=== PATIENT | male | born 1970 | race Caucasian/White ===

== ENCOUNTER 2023-07-31 07:00 | Inpatient (IN) | payer MEDICARE, OTHER ==
[2023-07-31] MEDS ORDERED: IPRATROPIUM-ALBUTEROL 3 ML NEB INHALATION STA (07:31)
[2023-07-31] MEDS ORDERED: methylPREDNISolone SOD SUCCI 125 MG/2 ML VIAL IV STA (07:31)
[2023-07-31] MEDS ORDERED: QUEtiapine 100 MG TAB PO STA (07:32)
--- NOTE | 2023-07-31 07:33 | ED ---
General Adult HPI - General Chief complaint: Shortness of Breath Stated complaint: SOB Time Seen by Provider: 07/31/23 07:15 Source: patient, EMS, RN notes reviewed Mode of arrival: EMS Limitations: no limitations - History of Present Illness Initial comments: Patient is a pleasant 53-year-old male presenting to the emergency department with concerns with difficulty breathing. Onset of symptoms was a week ago. Patient does have cough with white sputum. No fever. No chest pain. Patient does have history of similar symptoms previously associated with COPD and bronchitis. Patient currently comes from [place] for history of methamphetamine use. Patient requests his morning Seroquel. - Related Data Allergies Allergy/AdvReac Type Severity Reaction Status Date / Time No Known Allergies Allergy Verified 07/31/23 07:05 Review of Systems ROS Statement: Those systems with pertinent positive or pertinent negative responses have been documented in the HPI. ROS Other: All systems not noted in ROS Statement are negative. Constitutional: Denies: fever Eyes: Denies: eye pain ENT: Denies: ear pain Respiratory: Reports: as per HPI, cough, dyspnea Cardiovascular: Denies: chest pain Endocrine: Denies: fatigue Gastrointestinal: Denies: abdominal pain Musculoskeletal: Denies: back pain Past Medical History Smoking Status: Current some day smoker Past Alcohol Use History: Occasional Past Drug Use History: Methamphetamine General Exam Limitations: no limitations General appearance: alert, in no apparent distress Head exam: Present: normocephalic Eye exam: Present: normal appearance Neck exam: Present: normal inspection Respiratory exam: Present: wheezes, decreased breath sounds Cardiovascular Exam: Present: regular rate, normal rhythm GI/Abdominal exam: Present: soft. Absent: tenderness Extremities exam: Present: normal inspection. Absent: pedal edema, calf tenderness Neurological exam: Present: alert Psychiatric exam: Present: normal affect, normal mood Skin exam: Present: normal color Course Vital Signs 07/31/23 07/31/23 07/31/23 07:02 07:07 09:20 Temperature 97.4 F L Pulse Rate 78 86 Respiratory 28 H Rate Blood Pressure 118/77 O2 Sat by Pulse 93 L 95 Oximetry 07/31/23 09:27 Temperature Pulse Rate 78 Respiratory Rate Blood Pressure O2 Sat by Pulse Oximetry EKG Findings - EKG Results: EKG: interpreted by ERMD, sinus rhythm, normal axis, normal QRS, normal ST/T Medical Decision Making - Medical Decision Making Was pt. sent in by a medical professional or institution ([employer]ONNIE Black, EMPLOYEE SERVICE OFFICER, urgent care, hospital, or [place] health care facility...) When possible be specific @ -Patient was sent from [place] [facility] [place] Did you speak to anyone other than the patient for history (EMS, parent, family, police, friend...)? What history was obtained from this source @ -No Did you review nursing and triage notes (agree or disagree)? Why? @ -I reviewed and agree with nursing and triage notes Were old charts reviewed (outside hosp., previous admission, EMS record, old EKG, old radiological studies, urgent care reports/EKG's, [place] health care facility records)? Report findings @ -Reviewed limited paperwork from [place] Differential Diagnosis (chest pain, altered mental status, abdominal pain women, abdominal pain men, vaginal bleeding, weakness, fever, dyspnea, syncope, headache, dizziness, GI bleed, back pain, seizure, CVA, palpatations, mental health, musculoskeletal)? @ -Differential Dyspnea: Coronary syndrome, arrhythmia, tamponade, asthma, COPD, pulmonary embolism, pneumonia, pneumothorax, pulmonary effusion, anaphylaxis, diabetic ketoacidosis, flailed chest, pulmonary contusion, diaphragmatic rupture, anemia, neuromuscular, this is not meant to be an all-inclusive list. EKG interpreted by me (3pts min.). @ -As above X-rays interpreted by me (1pt min.). @ -Chest x-ray shows multifocal infiltrates CT interpreted by me (1pt min.). @ -None done U/S interpreted by me (1pt. min.). @ -None done What testing was considered but not performed or refused? (CT, X-rays, U/S, labs)? Why? @ -None What meds were considered but not given or refused? Why? @ -None Did you discuss the management of the patient with other professionals (professionals i.e. BONNIE Black, EMPLOYEE SERVICE OFFICER, lab, RT, psych nurse, social service manager, laboratory cureman, teacher, chief legal officer, family caseworker)? Give summary @ -eMH for admission covering for hospital call Was smoking cessation discussed for >3mins.? @ -No Was critical care preformed (if so, how long)? @ -No Were there social determinants of health that impacted care today? How? (Homelessness, low income, unemployed, alcoholism, drug addiction, transportation, low edu. Level, literacy, decrease access to med. care, skilled nursing, r ehab)? @ -No Was there de-escalation of care discussed even if they declined (Discuss DNR or withdrawal of care, Hospice)? DNR status @ -No What co-morbidities impacted this encounter? (DM, HTN, Smoking, COPD, CAD, Cancer, CVA, ARF, Chemo, Hep., AIDS, mental health diagnosis, sleep apnea, morbid obesity)? @ -None Was patient admitted / discharged? Hospital course, mention meds given and route, prescriptions, significant lab abnormalities, going to OR and other pertinent info. @ -Patient reevaluated without significant change in lung sounds. Chest x-ray with multifocal infiltrates. Viral testing negative. Patient will be admitted on pneumonia pathway. Patient reevaluated and updated on plan. Admission orders written. Pulmonary consult placed. IV antibiotics started. Blood culture and lactic acid have been ordered. Undiagnosed new problem with uncertain prognosis? @ -No Drug Therapy requiring intensive monitoring for toxicity (Heparin, Nitro, Insulin, Cardizem)? @ -No Were any procedures done? @ -No Diagnosis/symptom? @ -COPD, multifocal pneumonia Acute, or Chronic, or Acute on Chronic? @ -Acute on chronic, acute Uncomplicated (without systemic symptoms) or Complicated (systemic symptoms)? @ -default Side effects of treatment? @ -No Exacerbation, Progression, or Severe Exacerbation? @ -Exacerbation of COPD Poses a threat to life or bodily function? How? (Chest pain, [place], [place], pneumonia, PE, COPD, DKA, ARF, appy, cholecystitis, CVA, Diverticulitis, Homicidal, Suicidal, threat to staff... and all critical care pts) @ -No - Lab Data Result diagrams: 07/31/23 07:56 07/31/23 07:56 Lab Results 07/31/23 07/31/23 07/31/23 Range/Units 07:56 07:56 07:56 WBC 7.4 (3.8-10.6) k/uL RBC 5.23 (4.30-5.90) m/uL Hgb 15.0 (13.0-17.5) gm/dL Hct 45.7 (39.0-53.0) % MCV 87.4 (80.0-100.0) fL MCH 28.7 (25.0-35.0) pg MCHC 32.8 (31.0-37.0) g/dL RDW 14.7 (11.5-15.5) % Plt Count 254 (150-450) k/uL MPV 7.2 Neutrophils % 61 % Lymphocytes % 19 % Monocytes % 5 % Eosinophils % 11 % Basophils % 1 % Neutrophils # 4.5 (1.3-7.7) k/uL Lymphocytes # 1.4 (1.0-4.8) k/uL Monocytes # 0.4 (0-1.0) k/uL Eosinophils # 0.8 H (0-0.7) k/uL Basophils # 0.0 (0-0.2) k/uL Sodium 139 (137-145) mmol/L Potassium 4.7 (3.5-5.1) mmol/L Chloride 103 (98-107) mmol/L Carbon Dioxide 25 (22-30) mmol/L Anion Gap 11 mmol/L BUN 20 (9-20) mg/dL Creatinine 0.68 (0.66-1.25) mg/dL Est GFR (CKD-EPI)AfAm >90 (>60 ml/min/1.73 sqM) Est GFR (CKD-EPI)NonAf >90 (>60 ml/min/1.73 sqM) Glucose 106 H (74-99) mg/dL Plasma Lactic Acid [place] (0.7-2.0) mmol/L Calcium 9.6 (8.4-10.2) mg/dL Magnesium 2.1 (1.6-2.3) mg/dL Total Bilirubin 0.5 (0.2-1.3) mg/dL AST 32 (17-59) U/L ALT 17 (4-49) U/L Alkaline Phosphatase 26 L (38-126) U/L Total Protein 9.0 H (6.3-8.2) g/dL Albumin 4.6 (3.5-5.0) g/dL Influenza Type A (PCR) Not Detected (Not Detectd) Influenza Type B (PCR) Not Detected (Not Detectd) RSV (PCR) Not Detected (Not Detectd) SARS-CoV-2 (PCR) Not Detected (Not Detectd) 07/31/23 Range/Units 07:56 WBC (3.8-10.6) k/uL RBC (4.30-5.90) m/uL Hgb (13.0-17.5) gm/dL Hct (39.0-53.0) % MCV (80.0-100.0) fL MCH (25.0-35.0) pg MCHC (31.0-37.0) g/dL RDW (11.5-15.5) % Plt Count (150-450) k/uL MPV Neutrophils % % Lymphocytes % % Monocytes % % Eosinophils % % Basophils % % Neutrophils # (1.3-7.7) k/uL Lymphocytes # (1.0-4.8) k/uL Monocytes # (0-1.0) k/uL Eosinophils # (0-0.7) k/uL Basophils # (0-0.2) k/uL Sodium (137-145) mmol/L Potassium (3.5-5.1) mmol/L Chloride (98-107) mmol/L Carbon Dioxide (22-30) mmol/L Anion Gap mmol/L BUN (9-20) mg/dL Creatinine (0.66-1.25) mg/dL Est GFR (CKD-EPI)AfAm (>60 ml/min/1.73 sqM) Est GFR (CKD-EPI)NonAf (>60 ml/min/1.73 sqM) Glucose (74-99) mg/dL Plasma Lactic Acid [place] 1.2 (0.7-2.0) mmol/L Calcium (8.4-10.2) mg/dL Magnesium (1.6-2.3) mg/dL Total Bilirubin (0.2-1.3) mg/dL AST (17-59) U/L ALT (4-49) U/L Alkaline Phosphatase (38-126) U/L Total Protein (6.3-8.2) g/dL Albumin (3.5-5.0) g/dL Influenza Type A (PCR) (Not Detectd) Influenza Type B (PCR) (Not Detectd) RSV (PCR) (Not Detectd) SARS-CoV-2 (PCR) (Not Detectd) Disposition Clinical Impression: Acute exacerbation of chronic obstructive pulmonary disease, Multifocal pneumonia Disposition: ADMITTED IP TO THIS HOSP Condition: Serious Is patient prescribed a controlled substance at d/c from ED?: No Referrals: None,Stated [Primary Care Provider] - 1-2 days Time of Disposition: 09:46
[2023-07-31 08:46] LABS: Basophils % (A) 1 %; Eosinophils # (A) 0.8 k/uL (0-0.7); Eosinophils % (A) 11 %; HCT 45.7 % (39.0-53.0); Lymphocytes # (A) 1.4 k/uL (1.0-4.8); Lymphocytes % (A) 19 %; MCH 28.7 pg (25.0-35.0); MCHC 32.8 g/dL (31.0-37.0); MCV 87.4 fL (80.0-100.0); Mean Platelet Volume 7.2; Monocytes # (A) 0.4 k/uL (0-1.0); Monocytes % (A) 5 %; Neutrophils # (A) 4.5 k/uL (1.3-7.7); Neutrophils % (A) 61 %; Platelet Count 254 k/uL (150-450); RBC 5.23 m/uL (4.30-5.90); RDW 14.7 % (11.5-15.5); WBC 7.4 k/uL (3.8-10.6)
[2023-07-31 09:04] LABS: ALT 17 U/L (4-49); AST 32 U/L (17-59); African American GFR (CKD) >90 (>60 ml/min/1.73 sqM); Albumin 4.6 g/dL (3.5-5.0); Alkaline Phosphatase 26 U/L (38-126); Anion Gap 11 mmol/L; Blood Urea Nitrogen 20 mg/dL (9-20); Calcium 9.6 mg/dL (8.4-10.2); Carbon Dioxide 25 mmol/L (22-30); Chloride 103 mmol/L (98-107); Glucose 106 mg/dL (74-99); Magnesium 2.1 mg/dL (1.6-2.3); Non-African American GFR(CKD) >90 (>60 ml/min/1.73 sqM); Potassium 4.7 mmol/L (3.5-5.1); Sodium 139 mmol/L (137-145); Total Bilirubin 0.5 mg/dL (0.2-1.3)
--- NOTE | 2023-07-31 09:27 | XR ---
EXAMINATION TYPE: XR chest 2V DATE OF EXAM: 07/31/2023 8:50 AM CLINICAL INDICATION:Male, 53 years old with history of difficulty breathing; [facility] COMPARISON: None TECHNIQUE: XR chest 2V Frontal and lateral views of the chest. FINDINGS: Lungs/Pleura: Multifocal airspace opacities. No evidence of pneumothorax or pleural effusion. Pulmonary vascularity: Unremarkable. Heart/mediastinum: Cardiomediastinal silhouette is unremarkable. Musculoskeletal: No acute osseous pathology. IMPRESSION: Multifocal airspace opacities correlate for pneumonia.
[2023-07-31] MEDS ORDERED: PNEUMONIA PROTOCOL UTILIZED 1 EACH MISC PO PRN (09:42)
[2023-07-31] MEDS ORDERED: IPRATROPIUM-ALBUTEROL 3 ML NEB INHALATION PRN (09:42)
[2023-07-31] MEDS ORDERED: AZITHROMYCIN 500 MG in SODIUM CHLORIDE 0.9% 250 ML IVPB STA (09:42)
[2023-07-31] MEDS: SODIUM CHLORIDE 0.9% 1,000 ML IV SCH ×2 (10:20→17:12)
[2023-07-31 11:13] LABS: INR 1.1 (<1.2); Partial Thromboplastin Time 22.6 sec (22.0-30.0); Prothrombin Time 11.6 sec (10.0-12.5)
[2023-07-31] MEDS: IPRATROPIUM-ALBUTEROL 3 ML NEB INHALATION SCH ×3 (12:02→20:56)
[2023-07-31] MEDS ORDERED: NALOXONE 0.4 MG/ML 1 ML VIAL IV PRN (13:35)
[2023-07-31] MEDS ORDERED: ACETAMINOPHEN TAB 325 MG TAB PO PRN (13:35)
[2023-07-31] MEDS ORDERED: MAG HYDROX/AL HYDROX/SIMETH 30 ML CUP PO PRN (13:35)
[2023-07-31] MEDS ORDERED: ONDANSETRON 4 MG/2 ML VIAL IVP PRN (13:35)
[2023-07-31] MEDS ORDERED: ALPRAZolam 0.25 MG TAB PO PRN (13:35)
[2023-07-31] MEDS ORDERED: bisacodyL 5 MG TABLET.DR PO PRN (13:35)
--- NOTE | 2023-07-31 13:37 | P.HPIM ---
History of Present Illness H&P Date: 07/31/23 History of present illness; patient is a 53-year-old gentleman with past medical history significant for COPD, and tobacco addiction who presented to the ER because of worsening shortness of breath and productive cough for 1 week. Patient was sent in from [place] where He was being treated for methamphetamine abuse. Patient stated that shortness of breath on exertion. Patient was also coughing up white phlegm. Denied any fever or chills. There was no complain of orthopnea or PND. No complaint of chest pain. Denies any nausea, vomiting abdominal pain. Patient was complaining of lethargy and weakness. Because of the symptoms, patient came to the ER Initial lab work done in the ER showed WBC 7.4, hemoglobin 15, platelet count 254, sodium 139 potassium 4.7, BUN 20, creatinine 0.68, glucose 106, Influenza A not detected Influenza B not detected RSV not detected COVID-19 not detected EKG done in the ER Chest x-ray done in the ER showed multifocal airspace opacities Patient started on IV antibiotics and admitted to medicine service REVIEW OF SYSTEMS: CONSTITUTIONAL: No fever, no malaise, no fatigue. HEENT: No recent visual problems or hearing problems. Denied any sore throat. CARDIOVASCULAR: As mentioned in HPI PULMONARY: As mentioned in HPI GASTROINTESTINAL: No diarrhea, no nausea, no vomiting, no abdominal pain. NEUROLOGICAL: No headaches, no weakness, no numbness. HEMATOLOGICAL: Denies any bleeding or petechiae. GENITOURINARY: Denies any burning micturition, frequency, or urgency. MUSCULOSKELETAL/RHEUMATOLOGICAL: Denies any joint pain, swelling, or any muscle pain. ENDOCRINE: Denies any polyuria or polydipsia. The rest of the 14-point review of systems is negative. PHYSICAL EXAMINATION: GENERAL: The patient is alert and oriented x3, not in any acute distress. Well developed, well nourished. HEENT: Pupils are round and equally reacting to light. EOMI. No scleral icterus. No conjunctival pallor. Normocephalic, atraumatic. No pharyngeal erythema. No thyromegaly. CARDIOVASCULAR: S1 and S2 present. No murmurs, rubs, or gallops. PULMONARY: Coarse breath some bilaterally, expiratory wheeze audible ABDOMEN: Soft, nontender, nondistended, normoactive bowel sounds. No palpable organomegaly. MUSCULOSKELETAL: No joint swelling or deformity. EXTREMITIES: No cyanosis, clubbing, or pedal edema. NEUROLOGICAL: Gross neurological examination did not reveal any focal deficits. SKIN: No rashes. Assessment and plan Bacterial pneumonia Acute COPD exacerbation Tobacco addiction History of Methamphetamine abuse Monitor vital signs Monitor CBC Monitor CMP Continue telemetry monitoring Ordered blood cultures Ordered sputum culture Continue IV Rocephin and azithromycin continue breathing treatments Consult pulmonary Consult ID Labs and medication were reviewed.. Continue same treatment. Continue with symptomatic treatment. Resume home medication. Monitor labs and vitals. DVT and GI prophylaxis. Further recommendations as per clinical course of the patient Dictation was produced using [employer] dictation software. please excuse any grammatical, word or spelling errors. Past Medical History Smoking Status: Current some day smoker Past Alcohol Use History: Occasional Past Drug Use History: Methamphetamine Medications and Allergies Home Medications Medication Instructions Recorded Confirmed Type Acetaminophen Tab [Tylenol] 650 mg PO Q4H PRN 07/31/23 07/31/23 History Albuterol Nebulized [Ventolin 2.5 mg INHALATION RT-Q4H PRN 07/31/23 07/31/23 History Nebulized] Atorvastatin [Lipitor] 40 mg PO HS 07/31/23 07/31/23 History Azithromycin [Zithromax Z Pack] See Taper PO DIRECTED 07/31/23 07/31/23 History Buprenorphine-Nalox 8-2 mg Tab 1 tab SUBLINGUAL BID 07/31/23 07/31/23 History [Suboxone 8-2 mg Tab] Calcium/Mag/Zinc/D3 1 tab PO TID PRN 07/31/23 07/31/23 History Chlorpheniramine Maleate 4 mg PO Q4H PRN 07/31/23 07/31/23 History [Chlor-Trimeton] Loperamide HCl [Imodium A-D] 4 mg PO QID PRN MDD 8 TABLETS 07/31/23 07/31/23 History Multivitamins, Thera [Multivitamin 1 tab PO DAILY 07/31/23 07/31/23 History (formulary)] Mylanta 30 ml PO Q4H PRN 07/31/23 07/31/23 History QUEtiapine FUMARATE [Seroquel] 200 mg PO HS 07/31/23 07/31/23 History QUEtiapine [SEROquel] 100 mg PO DAILY 07/31/23 07/31/23 History Tamsulosin HCl [Flomax] 0.4 mg PO DAILY 07/31/23 07/31/23 History Thiamine [Vitamin B-1] 100 mg PO DAILY 07/31/23 07/31/23 History busPIRone HCl [Buspar] 10 mg PO TID 07/31/23 07/31/23 History guaiFENesin [guaiFENesin Oral 200 mg PO Q4H PRN 07/31/23 07/31/23 History Solution] ondansetron HCL [Zofran] 8 mg PO Q6H PRN 07/31/23 07/31/23 History traZODone HCL 100 mg PO HS 07/31/23 07/31/23 History Allergies Allergy/AdvReac Type Severity Reaction Status Date / Time No Known Allergies Allergy Verified 07/31/23 10:33 Physical Exam Vitals: Vital Signs Temp Pulse Resp BP Pulse Ox 07/31/23 12:13 80 07/31/23 12:04 82 07/31/23 09:27 78 07/31/23 09:20 86 07/31/23 07:07 95 07/31/23 07:02 97.4 F L 78 28 H 118/77 93 L Intake and Output 07/30/23 07/31/23 07/31/23 22:59 06:59 14:59 Other: Weight 77.111 kg Results CBC & Chem 7: 07/31/23 07:56 07/31/23 07:56 Labs: Abnormal Lab Results - Last 24 Hours (Table) 07/31/23 07/31/23 Range/Units 07:56 07:56 Eosinophils # 0.8 H (0-0.7) k/uL Glucose 106 H (74-99) mg/dL Alkaline Phosphatase 26 L (38-126) U/L Total Protein 9.0 H (6.3-8.2) g/dL
[2023-07-31] MEDS: methylPREDNISolone SOD SUCCI 125 MG/2 ML VIAL IV SCH ×3 (13:56→23:52)
--- NOTE | 2023-07-31 15:48 | P.CNPUL ---
History of Present Illness Consult date: 07/31/23 Requesting physician: Hollis Borrego Reason for consult: dyspnea, COPD, abnormal CXR/CT Chief complaint: Shortness of breath, cough, congestion History of present illness: This is a 53-year-old male patient with a known history of chronic and ongoing tobacco dependence, chronic obstructive pulmonary disease, lumbar disc disease, CVA following a methamphetamine overdose. He lives in [place] but was at [facility] for drug use. He was sent here today for increasing shortness of breath, cough and congestion for the past 5-6 days. His chest x-ray does show bilateral infiltrates. Viral screen was negative. He is seen today in consultation in the emergency department. He is awake and alert in no acute distress. He is maintaining O2 saturation in low 90s on room air. White count 7.4. Hemoglobin 15.0. Sodium 139. Potassium 4.7. Bicarb 25. BUN 20. Creatinine 0.68. Glucose 106. He's been initiated on DuoNeb inhalations, Pulmicort and Perforomist inhalations, IV Solu-Medrol. Antibiotics in the form of ceftriaxone and azithromycin. NicoDerm patch in place. Normal saline at 100 ML's per hour. Review of Systems REVIEW OF SYSTEMS: CONSTITUTIONAL: Denies any recent significant weight loss or weight gain. EYES: Denies change in vision. EARS, NOSE, MOUTH, THROAT: Denies headaches, denies sore throat. CARDIOVASCULAR: Denies chest pain, palpitations or syncopal episodes. RESPIRATORY: Positive for shortness of breath, cough, congestion no hemoptysis. GASTROINTESTINAL: Denies change in appetite, denies abdominal pain GENITOURINARY: Denies hematuria, denies infections. MUSKULOSKELETAL: Denies pain, denies swelling. INTEGUMENTARY: Denies rash, denies eczema. NEUROLOGICAL: Denies recent memory loss, no recent seizure activity. PSYCHIATRIC: Denies anxiety, denies depression. HEMATOLOGIC/LYMPHATIC: Denies anemia, denies enlarged lymph nodes. Past Medical History Smoking Status: Current some day smoker Past Alcohol Use History: Occasional Past Drug Use History: Methamphetamine Medications and Allergies Home Medications Medication Instructions Recorded Confirmed Type Acetaminophen Tab [Tylenol] 650 mg PO Q4H PRN 07/31/23 07/31/23 History Albuterol Nebulized [Ventolin 2.5 mg INHALATION RT-Q4H PRN 07/31/23 07/31/23 History Nebulized] Atorvastatin [Lipitor] 40 mg PO HS 07/31/23 07/31/23 History Azithromycin [Zithromax Z Pack] See Taper PO DIRECTED 07/31/23 07/31/23 History Buprenorphine-Nalox 8-2 mg Tab 1 tab SUBLINGUAL BID 07/31/23 07/31/23 History [Suboxone 8-2 mg Tab] Calcium/Mag/Zinc/D3 1 tab PO TID PRN 07/31/23 07/31/23 History Chlorpheniramine Maleate 4 mg PO Q4H PRN 07/31/23 07/31/23 History [Chlor-Trimeton] Loperamide HCl [Imodium A-D] 4 mg PO QID PRN MDD 8 TABLETS 07/31/23 07/31/23 History Multivitamins, Thera [Multivitamin 1 tab PO DAILY 07/31/23 07/31/23 History (formulary)] Mylanta 30 ml PO Q4H PRN 07/31/23 07/31/23 History QUEtiapine FUMARATE [Seroquel] 200 mg PO HS 07/31/23 07/31/23 History QUEtiapine [SEROquel] 100 mg PO DAILY 07/31/23 07/31/23 History Tamsulosin HCl [Flomax] 0.4 mg PO DAILY 07/31/23 07/31/23 History Thiamine [Vitamin B-1] 100 mg PO DAILY 07/31/23 07/31/23 History busPIRone HCl [Buspar] 10 mg PO TID 07/31/23 07/31/23 History guaiFENesin [guaiFENesin Oral 200 mg PO Q4H PRN 07/31/23 07/31/23 History Solution] ondansetron HCL [Zofran] 8 mg PO Q6H PRN 07/31/23 07/31/23 History traZODone HCL 100 mg PO HS 07/31/23 07/31/23 History Allergies Allergy/AdvReac Type Severity Reaction Status Date / Time No Known Allergies Allergy Verified 07/31/23 10:33 Physical Exam Vitals: Vital Signs Temp Pulse Resp BP Pulse Ox 07/31/23 14:03 74 20 112/88 93 L 07/31/23 12:13 80 07/31/23 12:04 82 07/31/23 09:27 78 07/31/23 09:20 86 07/31/23 07:07 95 07/31/23 07:02 97.4 F L 78 28 H 118/77 93 L Intake and Output 07/31/23 07/31/23 07/31/23 06:59 14:59 22:59 Other: Weight 77.111 kg GENERAL EXAM: Alert, 53-year-old male patient, on room air, fairly comfortable in no apparent distress. HEAD: Normocephalic. EYES: Normal reaction of pupils, equal size. NOSE: Clear with pink turbinates. THROAT: Edentulous. No erythema or exudates. NECK: No masses, no JVD. CHEST: No chest wall deformity. LUNGS: Equal air entry with bilateral scattered rhonchi, wheeze, diminished. CVS: S1 and S2 normal with no audible murmur, regular rhythm. ABDOMEN: No hepatosplenomegaly, normal bowel sounds, no guarding or rigidity. SPINE: No scoliosis or deformity SKIN: No rashes CENTRAL NERVOUS SYSTEM: No focal deficits, tone is normal in all 4 extremities. EXTREMITIES: There is no peripheral edema. No clubbing, no cyanosis. Peripheral pulses are intact. Results - Laboratory Findings CBC and BMP: 07/31/23 07:56 07/31/23 07:56 PT/INR, D-dimer PT 11.6 sec (10.0-12.5) 07/31/23 10:30 INR 1.1 (<1.2) 07/31/23 10:30 Abnormal lab findings: Abnormal Labs 07/31/23 07/31/23 07:56 07:56 Eosinophils # 0.8 H Glucose 106 H Alkaline Phosphatase 26 L Total Protein 9.0 H - Diagnostic Findings Chest x-ray: image reviewed Assessment and Plan Assessment: Acute hypoxemic respiratory failure secondary to an acute exacerbation of chronic obstructive pulmonary disease, complicated by bilateral pneumonia, community-acquired Methamphetamine abuse and currently residing in [facility] 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 Continue ceftriaxone and azithromycin Check a pro-calcitonin Add Pulmicort and Perforomist inhalations Continue DuoNeb inhalations, Solu-Medrol Educated regarding the importance of complete drug cessation Educated regarding the importance of complete smoking cessation NicoDerm patch is applied We will continue to follow and make further recommendations based on his clinical status I have personally seen and examined the patient, performed the documentation and the assessment and plan as written. Number of minutes spent on the visit: 20.
[2023-07-31] MEDS: NICOTINE 21MG/24HR PATCH TRANSDERM SCH (16:14)
[2023-07-31] MEDS ORDERED: guaiFENesin SYRUP 100MG/5ML 200 MG/10 ML CUP PO PRN (17:38)
[2023-07-31] MEDS: LORazepam 2 MG/ML INJ IV PRN (17:55)
[2023-07-31] MEDS: QUEtiapine 200 MG TAB PO SCH (20:08)
[2023-07-31] MEDS: ATORVASTATIN 40 MG TAB PO SCH (20:08)
[2023-07-31] MEDS: BUPRENORPHINE-NALOX 8-2 MG TAB 1 EACH TAB.SUBL SL SCH (20:08)
[2023-07-31] MEDS: busPIRone HCl 10 MG TAB PO SCH (20:09)
[2023-07-31] MEDS: traZODone HCL 100 MG TAB PO SCH (20:09)
[2023-07-31] MEDS: FORMOTEROL FUMARATE 20 MCG/2 ML NEBU INHALATION SCH (20:56)
[2023-07-31] MEDS: BUDESONIDE 1 MG/2 ML NEBU INHALATION SCH (20:56)
[2023-08-01] MEDS: LORazepam 2 MG/ML INJ IV PRN ×4 (00:01→14:52)
[2023-08-01] MEDS: SODIUM CHLORIDE 0.9% 1,000 ML IV SCH ×2 (05:59→08:01)
[2023-08-01] MEDS: methylPREDNISolone SOD SUCCI 125 MG/2 ML VIAL IV SCH ×4 (06:00→17:34)
[2023-08-01] MEDS: IPRATROPIUM-ALBUTEROL 3 ML NEB INHALATION SCH ×4 (07:38→21:16)
[2023-08-01] MEDS: FORMOTEROL FUMARATE 20 MCG/2 ML NEBU INHALATION SCH ×2 (07:38→21:16)
[2023-08-01] MEDS: BUDESONIDE 1 MG/2 ML NEBU INHALATION SCH ×2 (07:38→21:16)
[2023-08-01] MEDS: AZITHROMYCIN 500 MG TAB PO SCH (07:59)
[2023-08-01] MEDS: busPIRone HCl 10 MG TAB PO SCH ×3 (07:59→20:34)
[2023-08-01] MEDS: TAMSULOSIN 0.4 MG CAP.ER.24H PO SCH (07:59)
[2023-08-01] MEDS: NICOTINE 21MG/24HR PATCH TRANSDERM SCH (07:59)
[2023-08-01] MEDS: BUPRENORPHINE-NALOX 8-2 MG TAB 1 EACH TAB.SUBL SL SCH ×2 (08:00→20:34)
[2023-08-01] MEDS: QUEtiapine 100 MG TAB PO SCH (08:00)
--- NOTE | 2023-08-01 08:21 | P.CONS ---
History of Present Illness - Reason for Consult Consult date: 07/31/23 multifocal pneumonia Requesting physician: Hollis Borrego - Chief Complaint increase in shortness of breath and cough x few days - History of Present Illness Patient is a 53-year-old male with a past medical his significant for COPD current smoker chronic back pain presenting to the ER for evaluation of increasing shortness of breath patient's symptom has been getting worse for about a week patient also complaining of cough which is moderate intensity with whitish sputum patient denies having any pleuritic chest pain or hemoptysis denies having any nausea no vomiting no choking on the food no abdominal pain or any diarrhea patient presented to the hospital was afebrile patient was not tachycardic or hypotensive did have mild hypoxia but no need for supplemental oxygen did have white count of 7.4 creatinine 0.68 liver enzymes are normal influenza RSV and COVID testing was negative patient did have a chest x-ray multifocal airspace opacity correlate for pneumonia patient was admitted to the hospital started on Rocephin and Zithromax infectious disease was consulted for further management of antibiotic therapy Review of Systems Positive point and negatives has been mentioned in the HPI, complete review of systems was performed and all other systems are negative Past Medical History Past Medical History: COPD Additional Past Medical History / Comment(s): chronic back pain History of Any Multi-Drug Resistant Organisms: None Reported Additional Past Surgical History / Comment(s): right shoulder repair Past Anesthesia/Blood Transfusion Reactions: No Reported Reaction Past Psychological History: No Psychological Hx Reported Smoking Status: Current some day smoker Past Alcohol Use History: Occasional Past Drug Use History: Methamphetamine - Past Family History Father Family Medical History: No Reported History Medications and Allergies Home Medications Medication Instructions Recorded Confirmed Type Acetaminophen Tab [Tylenol] 650 mg PO Q4H PRN 07/31/23 07/31/23 History Atorvastatin [Lipitor] 40 mg PO HS 07/31/23 07/31/23 History Buprenorphine-Nalox 8-2 mg Tab 1 tab SUBLINGUAL BID 07/31/23 07/31/23 History [Suboxone 8-2 mg Tab] Calcium/Mag/Zinc/D3 1 tab PO TID PRN 07/31/23 07/31/23 History Loperamide HCl [Imodium A-D] 4 mg PO QID PRN MDD 8 TABLETS 07/31/23 07/31/23 History Multivitamins, Thera [Multivitamin 1 tab PO DAILY 07/31/23 07/31/23 History (formulary)] Mylanta 30 ml PO Q4H PRN 07/31/23 07/31/23 History QUEtiapine FUMARATE [SEROquel] 200 mg PO HS 07/31/23 07/31/23 History QUEtiapine [SEROquel] 100 mg PO DAILY 07/31/23 07/31/23 History Tamsulosin HCl [Flomax] 0.4 mg PO DAILY 07/31/23 07/31/23 History Thiamine [Vitamin B-1] 100 mg PO DAILY 07/31/23 07/31/23 History busPIRone HCl [Buspar] 10 mg PO TID 07/31/23 07/31/23 History guaiFENesin [guaiFENesin Oral 200 mg PO Q4H PRN 07/31/23 07/31/23 History Solution] ondansetron HCL [Zofran] 8 mg PO Q6H PRN 07/31/23 07/31/23 History traZODone HCL 100 mg PO HS 07/31/23 07/31/23 History Albuterol Inhaler [Ventolin Hfa 1 puff INHALATION QID PRN #8 gm 08/03/23 Rx Inhaler] Budesonide/Formoterol Fumarate 1 puff INHALATION BID #10.2 gm 08/03/23 Rx [Symbicort 80-4.5 Mcg Inhaler] Nicotine 21Mg/24Hr Patch [Habitrol] 1 patch TRANSDERM DAILY patch 08/03/23 Rx Pantoprazole [Protonix] 40 mg PO AC-BRKFST #30 tab 08/03/23 Rx chlordiazePOXIDE HCl [Librium] 20 mg PO DIRECTED #6 cap 08/03/23 Rx predniSONE 0 mg PO DIRECTED 12 Days #34 tab 08/03/23 Rx Allergies Allergy/AdvReac Type Severity Reaction Status Date / Time No Known Allergies Allergy Verified 07/31/23 10:33 Physical Exam Vitals: Vital Signs Temp Pulse Pulse Resp BP BP Pulse Ox 07/31/23 16:46 97.4 F L 92 19 123/69 94 L 07/31/23 15:53 76 07/31/23 15:44 72 07/31/23 14:03 74 20 112/88 93 L 07/31/23 12:13 80 07/31/23 12:04 82 07/31/23 09:27 78 07/31/23 09:20 86 07/31/23 07:07 95 07/31/23 07:02 97.4 F L 78 28 H 118/77 93 L Intake and Output 07/31/23 07/31/23 07/31/23 06:59 14:59 22:59 Other: Weight 77.111 kg 77.111 kg GENERAL DESCRIPTION: Middle-aged male lying in bed, no distress. No tachypnea or accessory muscle of respiration use. HEENT: Shows Pallor , no scleral icterus. Oral mucous membrane is dry. No pharyngeal erythema or thrush NECK: Trachea central, no thyromegaly. LUNGS: Unlabored breathing. Coarse breath sounds bilaterally with occasional wheeze HEART: S1, S2, regular rate and rhythm. No loud murmur ABDOMEN: Soft, no tenderness , guarding or rigidity, no organomegaly EXTREMITIES: No edema of feet. SKIN: No rash, no masses palpable. NEUROLOGICAL: The patient is awake, alert, oriented x3, mood and affect normal. Results CBC & Chem 7: 08/01/23 04:51 08/01/23 04:51 Labs: Abnormal Lab Results - Last 24 Hours (Table) 07/31/23 07/31/23 Range/Units 07:56 07:56 Eosinophils # 0.8 H (0-0.7) k/uL Glucose 106 H (74-99) mg/dL Alkaline Phosphatase 26 L (38-126) U/L Total Protein 9.0 H (6.3-8.2) g/dL Assessment and Plan (1) Multifocal pneumonia Status: Acute Code(s): J18.9 - PNEUMONIA, UNSPECIFIED ORGANISM SNOMED Code(s): 983923217 Plan: 1patient was in the hospital with increasing shortness of breath cough likely representing COPD exacerbation with evidence of multifocal pneumonia on the chest x-ray patient did have a negative COVID test. 2we will obtain sputum for Gram stain and culture check urine for Legionella antigen CRP and a procalcitonin level 3continue with Rocephin and Zithromax while awaiting further work-up to be completed We will follow on clinical condition and cultures to further adjust medication if needed Thank you for this consultation we will follow the patient along with you Dictation was produced using [employer] dictation software. please excuse any grammatical, word or spelling errors. Time with Patient: Greater than 30
[2023-08-01 08:39] LABS: Basophils # (A) 0.03 X 10*3/uL (0.00-0.10); Basophils % (A) 0.3 %; Eosinophils # (A) 0 X 10*3/uL (0.04-0.35); Eosinophils % (A) 0 %; HCT 38.4 % (39.6-50.0); HGB 12.2 g/dL (13.0-17.0); Lymphocytes # (A) 1.21 X 10*3/uL (0.90-5.00); Lymphocytes % (A) 11.1 %; MCH 27.7 pg (27.0-32.0); MCHC 31.8 g/dL (32.0-37.0); MCV 87.1 FL (80.0-97.0); Mean Platelet Volume 9.6 FL (9.5-12.2); Monocytes # (A) 0.11 X 10*3/uL (0.20-1.00); NRBC Per 100 WBC 0 X 10*3/uL (0.00-0.01); Neutrophils # (A) 9.53 X 10*3/uL (1.80-7.70); Neutrophils % (A) 87.1 %; Platelet Count 239 X 10*3/uL (140-440); RBC 4.41 X 10*6/uL (4.40-5.60); RDW 14.4 % (11.5-14.5); WBC 10.93 X 10*3/uL (4.50-10.00)
[2023-08-01 08:40] LABS: ALT 13 U/L (10-49); AST 14 U/L (14-35); Albumin/Globulin Ratio 1.18 Ratio (1.60-3.17); Alkaline Phosphatase 14 U/L (41-126); Blood Urea Nitrogen 18.9 mg/dL (9.0-27.0); Calcium 8.8 mg/dL (8.7-10.3); Carbon Dioxide 22.2 mmol/L (21.6-31.8); Chloride 104 mmol/L (96-109); Globulin 3.4 g/dL (1.6-3.3); Glucose 212 mg/dL (70-110); Potassium 4.1 mmol/L (3.5-5.5); Sodium 138 mmol/L (135-145); Total Bilirubin <0.2 mg/dL (0.3-1.2); Total Protein 7.4 g/dL (6.2-8.2)
[2023-08-01] MEDS: PANTOPRAZOLE 40 MG TABLET PO SCH (10:38)
--- NOTE | 2023-08-01 13:30 | P.PN ---
Subjective Progress Note Date: 08/01/23 This is a 53-year-old male patient with a known history of chronic and ongoing tobacco dependence, chronic obstructive pulmonary disease, lumbar disc disease, CVA following a methamphetamine overdose. He lives in [facility] but was at [facility] for drug use. He was sent here today for increasing shortness of breath, cough and congestion for the past 5-6 days. His chest x-ray does show bilateral infiltrates. Viral screen was negative. He is seen today in consultation in the emergency department. He is awake and alert in no acute distress. He is maintaining O2 saturation in low 90s on room air. White count 7.4. Hemoglobin 15.0. Sodium 139. Potassium 4.7. Bicarb 25. BUN 20. Creatinine 0.68. Glucose 106. He's been initiated on DuoNeb inhalations, Pulmicort and Perforomist inhalations, IV Solu-Medrol. Antibiotics in the form of ceftriaxone and azithromycin. NicoDerm patch in place. Normal saline at 100 ML's per hour. The patient is seen today 08/01/2023 in follow-up on the regular medical floor. He is currently sitting up in a chair at the bedside. Awake and alert in no acute distress. Feeling a bit better today compared to yesterday. Still d yspneic with conversation. Dyspneic with minimal exertion. White count 10.9. Hemoglobin 12.2. Platelets 239. Sodium 138. Potassium 4.1. Bicarb 22. BUN 19. Creatinine 0.9. Glucose 212. AST 14. ALT 13. He is continued on DuoNeb inhalations, Pulmicort and Perforomist inhalations, Solu-Medrol. Antibiotics in the form of ceftriaxone and azithromycin. NicoDerm patch in place. Continued o n Suboxone. Remains on the CIWA protocol. Follow-up chest x-ray continues to show bilateral multifocal airspace opacities. Legionella antigen pending. Pro- calcitonin pending. Objective - Vital Signs Vital signs: Vital Signs Temp 97.7 F 08/01/23 07:08 Pulse 68 08/01/23 11:22 Resp 20 08/01/23 07:08 BP 123/68 08/01/23 07:08 Pulse Ox 96 08/01/23 07:38 FiO2 Intake & Output 07/31/23 08/01/23 08/01/23 18:59 06:59 18:59 Weight 77.111 kg Other: # Voids 1 3 1 - Exam GENERAL EXAM: Alert, 53-year-old male patient, on room air, sitting up in a chair, comfortable in no apparent distress. HEAD: Normocephalic. EYES: Normal reaction of pupils, equal size. NOSE: Clear with pink turbinates. THROAT: Edentulous. No erythema or exudates. NECK: No masses, no JVD. CHEST: No chest wall deformity. LUNGS: Equal air entry with bilateral scattered coarse rhonchi, wheeze, diminished. CVS: S1 and S2 normal with no audible murmur, regular rhythm. ABDOMEN: No hepatosplenomegaly, normal bowel sounds, no guarding or rigidity. SPINE: No scoliosis or deformity SKIN: No rashes CENTRAL NERVOUS SYSTEM: No focal deficits, tone is normal in all 4 extremities. EXTREMITIES: There is no peripheral edema. No clubbing, no cyanosis. Peripheral pulses are intact. - Labs CBC & Chem 7: 08/01/23 04:51 08/01/23 04:51 Labs: Abnormal Lab Results - Last 24 Hours (Table) 08/01/23 08/01/23 Range/Units 04:51 04:51 WBC 10.93 H (4.50-10.00) X 10*3/uL Hgb 12.2 L (13.0-17.0) g/dL Hct 38.4 L (39.6-50.0) % MCHC 31.8 L (32.0-37.0) g/dL Neutrophils # 9.53 H (1.80-7.70) X 10*3/uL Monocytes # 0.11 L (0.20-1.00) X 10*3/uL Eosinophils # 0 L (0.04-0.35) X 10*3/uL BUN/Creatinine Ratio 21.00 H (12.00-20.00) Ratio Glucose 212 H (70-110) mg/dL Total Bilirubin <0.2 L (0.3-1.2) mg/dL Alkaline Phosphatase 14 L (41-126) U/L Globulin 3.4 H (1.6-3.3) g/dL Albumin/Globulin Ratio 1.18 L (1.60-3.17) Ratio Assessment and Plan Assessment: Acute hypoxemic respiratory failure secondary to an acute exacerbation of chronic obstructive pulmonary disease, complicated by bilateral pneumonia, co mmunity-acquired Methamphetamine abuse and currently residing in [facility] 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 Number of minutes spent on the visit: 10.
--- NOTE | 2023-08-01 14:59 | XR ---
EXAMINATION TYPE: XR chest 2V DATE OF EXAM: 08/01/2023 COMPARISON: 07/31/2023 INDICATION: Short of breath TECHNIQUE: Single frontal view of the chest is obtained. FINDINGS: The heart size is normal. The pulmonary vasculature is normal. Increased lung markings are present bilaterally. Findings are similar to comparison. Continued Follow -up is recommended. IMPRESSION: 1. Persistent bilateral lung infiltrates. Correlate for pneumonia. Continued follow-up to clearing is recommended
--- NOTE | 2023-08-01 16:14 | P.PN ---
Subjective Progress Note Date: 08/01/23 Principal diagnosis: Reason for follow-up is multifocal pneumonia Patient is a 53-year-old male with a past medical his significant for COPD current smoker chronic back pain presenting to the ER for evaluation of increasing shortness of breath and cough chest x-ray with multifocal airspace disease, covid 19 is negative concerning for possible pneumonia On today's evaluation that is08/01/2023, the patient denies any fever or any chills, the patient is breathing comfortably on room air without the need for supplemental oxygen, patient denies chest pain, the patient cough has decreased in intensity with occasional sputum production, patient denies Abdominal pain, no nausea/vomiting or diarrhea . Patient white count of 10.93, creatinine 0.9, chest x-ray repeat with persistent bilateral infiltrate Objective - Vital Signs Vital signs: Vital Signs Temp 97.6 F 08/01/23 12:55 Pulse 74 08/01/23 15:23 Resp 20 08/01/23 12:55 BP 110/56 08/01/23 12:55 Pulse Ox 94 L 08/01/23 12:55 FiO2 Intake & Output 07/31/23 08/01/23 08/01/23 18:59 06:59 18:59 Weight 77.111 kg Other: # Voids 1 3 1 - Exam GENERAL DESCRIPTION: Middle-age male up in the chair in no distress RESPIRATORY SYSTEM: Unlabored breathing , coarse breath sounds bilaterally HEART: S1 S2 regular rate and rhythm , ABDOMEN: Soft , no tenderness EXTREMITIES: No edema feet - Labs CBC & Chem 7: 08/01/23 04:51 08/01/23 04:51 Labs: Abnormal Lab Results - Last 24 Hours (Table) 08/01/23 08/01/23 Range/Units 04:51 04:51 WBC 10.93 H (4.50-10.00) X 10*3/uL Hgb 12.2 L (13.0-17.0) g/dL Hct 38.4 L (39.6-50.0) % MCHC 31.8 L (32.0-37.0) g/dL Neutrophils # 9.53 H (1.80-7.70) X 10*3/uL Monocytes # 0.11 L (0.20-1.00) X 10*3/uL Eosinophils # 0 L (0.04-0.35) X 10*3/uL BUN/Creatinine Ratio 21.00 H (12.00-20.00) Ratio Glucose 212 H (70-110) mg/dL Total Bilirubin <0.2 L (0.3-1.2) mg/dL Alkaline Phosphatase 14 L (41-126) U/L Globulin 3.4 H (1.6-3.3) g/dL Albumin/Globulin Ratio 1.18 L (1.60-3.17) Ratio Assessment and Plan (1) Multifocal pneumonia Current Visit: Yes Status: Acute Code(s): J18.9 - PNEUMONIA, UNSPECIFIED ORGANISM SNOMED Code(s): 119886448 Plan: 1patient was in the hospital with increasing shortness of breath cough likely representing COPD exacerbation with evidence of multifocal pneumonia on the chest x-ray patient did have a negative COVID test. 2 sputum for Gram stain and culture has not been collected, urine for Legionella antigen is negative 3patient to continue with Rocephin and Zithromax while awaiting further work-up to be completed Dictation was produced using [employer] dictation software. please excuse any grammatical, word or spelling errors. Time with Patient: Less than 30
[2023-08-01] MEDS: LORazepam 1 MG TAB PO PRN ×2 (18:16→22:31)
[2023-08-01] MEDS: QUEtiapine 200 MG TAB PO SCH (20:34)
[2023-08-01] MEDS: ATORVASTATIN 40 MG TAB PO SCH (20:34)
[2023-08-01] MEDS: traZODone HCL 100 MG TAB PO SCH (20:34)
[2023-08-01] MEDS ORDERED: DEXTROSE 50% SYRINGE 50 ML IVP PRN ×2 (21:11)
--- NOTE | 2023-08-01 21:12 | P.PN ---
Subjective Progress Note Date: 08/01/23 Patient evaluated on the medical floor. Continues to report shortness of breath, on IV ceftriaxone and oral azithromycin. Patient is also on high dose IV solumedrol. Chest xray showing persistent bilateral lung infiltrates. Procalcitonin level 0.02. Legionella, covid, RSV, influenza are negative. He remains on room air. He is anxious requesting increase dose of ativan which he is receiving IV noted that patient is also on xanax TID. Patient unable to give a sputum sample. Review of Systems Constitutional: Denied any fatigue denied any fever. Cardio vascular: denied any chest pain, palpitations Gastrointestinal: denied any nausea, vomiting, diarrhea Pulmonary: Denied any shortness of breath cough Neurologic denied any new focal deficits All inpatient medications were reviewed and appropriate changes in these medications as dictated in the interval history and assessment and plan. PHYSICAL EXAMINATION: GENERAL: The patient is alert and oriented x3, not in any acute distress. Well developed, well nourished. HEENT: Pupils are round and equally reacting to light. EOMI. No scleral icterus. No conjunctival pallor. Normocephalic, atraumatic. No pharyngeal erythema. No thyromegaly. CARDIOVASCULAR: S1 and S2 present. No murmurs, rubs, or gallops. PULMONARY: Lungs are diminished ABDOMEN: Soft, nontender, nondistended, normoactive bowel sounds. No palpable organomegaly. MUSCULOSKELETAL: No joint swelling or deformity. EXTREMITIES: No cyanosis, clubbing, or pedal edema. NEUROLOGICAL: Gross neurological examination did not reveal any focal deficits. SKIN: No rashes. Assessment Bilateral pneumonia, community acquired present on admission likely viral in nature with normal procalcitonin level, Acute COPD exacerbation Steroid induced hyperglycemia Tobacco addiction History of Methamphetamine abuse on suboxone patient is from [facility] History stroke in the past and meth overdose GI prophylaxis DVT prophylaxis Full Code Plan Continue empiric antibiotics, IV steroids Novolog sliding scale added as well as ACHS accuchecks Continue updrafts Educated on tobacco cessation Patient continues with nicotine patch He is requesting increase in ativan; xanax has been discontinued. Ativan dosing adjusted for PRN and patient has been started on oral librium. Blood culture pending, sputum culture pending. Pulmonary and ID following closely. The impression and plan of care has been dictated by Syeda Wren, Nurse Practitioner as directed. Dr. Sagrario MD I have performed a history and physical examination and medical decision making of this patient, discussed the same with the dictator, and agree with the dictators assessment and plan as written, documented as a scribe. Based on total visit time, I have performed more than 50% of this visit. Objective - Vital Signs Vital signs: Vital Signs Temp 97.6 F 08/01/23 12:55 Pulse 74 08/01/23 15:23 Resp 20 08/01/23 12:55 BP 110/56 08/01/23 12:55 Pulse Ox 94 L 08/01/23 12:55 FiO2 Intake & Output 07/31/23 08/01/23 08/01/23 18:59 06:59 18:59 Weight 77.111 kg Other: # Voids 1 3 1 - Labs CBC & Chem 7: 08/01/23 04:51 08/01/23 04:51 Labs: Abnormal Lab Results - Last 24 Hours (Table) 08/01/23 08/01/23 Range/Units 04:51 04:51 WBC 10.93 H (4.50-10.00) X 10*3/uL Hgb 12.2 L (13.0-17.0) g/dL Hct 38.4 L (39.6-50.0) % MCHC 31.8 L (32.0-37.0) g/dL Neutrophils # 9.53 H (1.80-7.70) X 10*3/uL Monocytes # 0.11 L (0.20-1.00) X 10*3/uL Eosinophils # 0 L (0.04-0.35) X 10*3/uL BUN/Creatinine Ratio 21.00 H (12.00-20.00) Ratio Glucose 212 H (70-110) mg/dL Total Bilirubin <0.2 L (0.3-1.2) mg/dL Alkaline Phosphatase 14 L (41-126) U/L Globulin 3.4 H (1.6-3.3) g/dL Albumin/Globulin Ratio 1.18 L (1.60-3.17) Ratio Assessment and Plan Time with Patient: Less than 30
[2023-08-01] MEDS: HEPARIN SODIUM,PORCINE 5,000 UNIT/ML 1 ML VIAL SQ SCH (22:31)
[2023-08-01] MEDS ORDERED: KETOROLAC 15 MG/ML 1 ML VIAL IVP PRN (23:57)
[2023-08-02] MEDS: methylPREDNISolone SOD SUCCI 125 MG/2 ML VIAL IV SCH ×2 (05:32→12:15)
[2023-08-02] MEDS: LORazepam 1 MG TAB PO PRN ×5 (05:32→21:33)
[2023-08-02 06:44] LABS: Glucose,Whole Blood 339 mg/dL (70-110)
[2023-08-02] MEDS: INSULIN ASPART (NovoLOG) 100 UNIT/ML VIAL SQ SCH ×4 (07:00→21:33)
[2023-08-02] MEDS: PANTOPRAZOLE 40 MG TABLET PO SCH ×2 (07:00→07:01)
[2023-08-02] MEDS: SODIUM CHLORIDE 0.9% 1,000 ML IV SCH ×2 (08:00→22:25)
[2023-08-02] MEDS: busPIRone HCl 10 MG TAB PO SCH ×3 (08:05→21:35)
[2023-08-02] MEDS: QUEtiapine 100 MG TAB PO SCH (08:05)
[2023-08-02] MEDS: BUPRENORPHINE-NALOX 8-2 MG TAB 1 EACH TAB.SUBL SL SCH ×2 (08:06→22:18)
[2023-08-02] MEDS: HEPARIN SODIUM,PORCINE 5,000 UNIT/ML 1 ML VIAL SQ SCH ×2 (08:06→21:35)
[2023-08-02] MEDS: AZITHROMYCIN 500 MG TAB PO SCH (08:06)
[2023-08-02] MEDS: TAMSULOSIN 0.4 MG CAP.ER.24H PO SCH (08:06)
[2023-08-02] MEDS: IPRATROPIUM-ALBUTEROL 3 ML NEB INHALATION SCH ×4 (08:59→21:26)
[2023-08-02] MEDS: FORMOTEROL FUMARATE 20 MCG/2 ML NEBU INHALATION SCH ×2 (08:59→21:25)
[2023-08-02] MEDS: BUDESONIDE 1 MG/2 ML NEBU INHALATION SCH ×2 (08:59→21:26)
[2023-08-02] MEDS: NICOTINE 21MG/24HR PATCH TRANSDERM SCH (09:38)
[2023-08-02 12:11] LABS: Glucose,Whole Blood 342 mg/dL (70-110)
--- NOTE | 2023-08-02 15:18 | P.PN ---
Subjective Progress Note Date: 08/02/23 This is a 53-year-old male patient with a known history of chronic and ongoing tobacco dependence, chronic obstructive pulmonary disease, lumbar disc disease, CVA following a methamphetamine overdose. He lives in [facility] but was at [facility] for drug use. He was sent here today for increasing shortness of breath, cough and congestion for the past 5-6 days. His chest x-ray does show bilateral infiltrates. Viral screen was negative. He is seen today in consultation in the emergency department. He is awake and alert in no acute distress. He is maintaining O2 saturation in low 90s on room air. White count 7.4. Hemoglobin 15.0. Sodium 139. Potassium 4.7. Bicarb 25. BUN 20. Creatinine 0.68. Glucose 106. He's been initiated on DuoNeb inhalations, Pulmicort and Perforomist inhalations, IV Solu-Medrol. Antibiotics in the form of ceftriaxone and azithromycin. NicoDerm patch in place. Normal saline at 100 ML's per hour. The patient is seen today 08/01/2023 in follow-up on the regular medical floor. He is currently sitting up in a chair at the bedside. Awake and alert in no acute distress. Feeling a bit better today compared to yesterday. Still d yspneic with conversation. Dyspneic with minimal exertion. White count 10.9. Hemoglobin 12.2. Platelets 239. Sodium 138. Potassium 4.1. Bicarb 22. BUN 19. Creatinine 0.9. Glucose 212. AST 14. ALT 13. He is continued on DuoNeb inhalations, Pulmicort and Perforomist inhalations, Solu-Medrol. Antibiotics in the form of ceftriaxone and azithromycin. NicoDerm patch in place. Continued o n Suboxone. Remains on the CIWA protocol. Follow-up chest x-ray continues to show bilateral multifocal airspace opacities. Legionella antigen pending. Pro- calcitonin pending. The patient is seen today 08/02/2023 in follow-up on the regular medical floor. He is awake and alert in no acute distress. Up in a chair. Maintaining good O2 saturations in the 90s on room air. Continued on ceftriaxone and azithromycin. Legionella screen negative. Blood sugar 342. C-reactive protein less than 0 .30. ProBNP 869. Pro-calcitonin 0.02. Blood culture revealed no growth. If he is continued on DuoNeb inhalations, Pulmicort and Perforomist inhalations, Solu-Medrol. REM for DVT prophylaxis. NicoDerm patch in place. Objective - Vital Signs Vital signs: Vital Signs Temp 98.1 F 08/02/23 08:04 Pulse 78 08/02/23 09:20 Resp 18 08/02/23 08:04 BP 157/84 08/02/23 08:04 Pulse Ox 93 L 08/02/23 08:04 FiO2 Intake & Output 08/01/23 08/02/23 08/02/23 18:59 06:59 18:59 Other: # Voids 1 3 3 - Exam GENERAL EXAM: Alert, 53-year-old male patient, on room air, comfortable in no apparent distress. HEAD: Normocephalic. EYES: Normal reaction of pupils, equal size. NOSE: Clear with pink turbinates. THROAT: Edentulous. No erythema or exudates. NECK: No masses, no JVD. CHEST: No chest wall deformity. LUNGS: Equal air entry with bilateral scattered coarse rhonchi, wheeze, diminished. CVS: S1 and S2 normal with no audible murmur, regular rhythm. ABDOMEN: No hepatosplenomegaly, normal bowel sounds, no guarding or rigidity. SPINE: No scoliosis or deformity SKIN: No rashes CENTRAL NERVOUS SYSTEM: No focal deficits, tone is normal in all 4 extremities. EXTREMITIES: There is no peripheral edema. No clubbing, no cyanosis. Peripheral pulses are intact. - Labs CBC & Chem 7: 08/01/23 04:51 08/01/23 04:51 Labs: Abnormal Lab Results - Last 24 Hours (Table) 08/02/23 08/02/23 Range/Units 06:43 12:09 POC Glucose (mg/dL) 339 H 342 H (70-110) mg/dL Microbiology - Last 24 Hours (Table) 07/31/23 10:30 Blood Culture - Preliminary Blood 07/31/23 10:15 Blood Culture - Preliminary Blood Assessment and Plan Assessment: Acute hypoxemic respiratory failure secondary to an acute exacerbation of c hronic obstructive pulmonary disease, complicated by suspected bilateral pneumonia, community-acquired a pro-calcitonin 0.02 antibiotics discontinued. Legionella screen negative. 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 We will continue to follow I have personally seen and examined the patient, performed the documentation and the assessment and plan as written. Number of minutes spent on the visit: 10.
[2023-08-02] MEDS ORDERED: methylPREDNISolone SOD SUCCI 40 MG/ML 1 ML VIAL IV SCH (16:00)
[2023-08-02 16:57] LABS: Glucose,Whole Blood 392 mg/dL (70-110)
[2023-08-02 20:34] LABS: Glucose,Whole Blood 339 mg/dL (70-110)
[2023-08-02] MEDS: QUEtiapine 200 MG TAB PO SCH (21:34)
[2023-08-02] MEDS: traZODone HCL 100 MG TAB PO SCH (21:34)
[2023-08-02] MEDS: ATORVASTATIN 40 MG TAB PO SCH (21:34)
--- NOTE | 2023-08-02 22:04 | P.PN ---
Subjective Progress Note Date: 08/02/23 Patient evaluated on the medical floor. Continues to report shortness of breath, on IV ceftriaxone and oral azithromycin. Patient is also on high dose IV solumedrol. Chest xray showing persistent bilateral lung infiltrates. Procalcitonin level 0.02. Legionella, covid, RSV, influenza are negative. He remains on room air. He is anxious requesting increase dose of ativan which he is receiving IV noted that patient is also on xanax TID. Patient unable to give a sputum sample. 08/02/2023 Patient is evaluated today continues to report increased anxiety and requesting more ativan. He has completed course of antibiotic therapy. Review of Systems Constitutional: Denied any fatigue denied any fever. Cardio vascular: denied any chest pain, palpitations Gastrointestinal: denied any nausea, vomiting, diarrhea Pulmonary: Denied any shortness of breath cough Neurologic denied any new focal deficits All inpatient medications were reviewed and appropriate changes in these medications as dictated in the interval history and assessment and plan. PHYSICAL EXAMINATION: GENERAL: The patient is alert and oriented x3, not in any acute distress. Well developed, well nourished. HEENT: Pupils are round and equally reacting to light. EOMI. No scleral icterus. No conjunctival pallor. Normocephalic, atraumatic. No pharyngeal erythema. No thyromegaly. CARDIOVASCULAR: S1 and S2 present. No murmurs, rubs, or gallops. PULMONARY: Lungs are diminished ABDOMEN: Soft, nontender, nondistended, normoactive bowel sounds. No palpable organomegaly. MUSCULOSKELETAL: No joint swelling or deformity. EXTREMITIES: No cyanosis, clubbing, or pedal edema. NEUROLOGICAL: Gross neurological examination did not reveal any focal deficits. SKIN: No rashes. Assessment Bilateral pneumonia, community acquired present on admission likely viral in nature with normal procalcitonin level. Completed course of antibiotics. Acute COPD exacerbation Steroid induced hyperglycemia Tobacco addiction History of Methamphetamine abuse on suboxone patient is from [facility] History stroke in the past and meth overdose GI prophylaxis DVT prophylaxis Full Code Plan Completed course of antibiotics, transtioned to oral steroids. Novolog sliding scale added as well as ACHS accuchecks Continue updrafts Educated on tobacco cessation Patient continues with nicotine patch He is requesting increase in ativan; xanax has been discontinued. Ativan dosing adjusted for PRN and patient has been started on oral librium. Blood culture pending Pulmonary and ID following closely. Monitor overnight possible return to [place] tomorrow The impression and plan of care has been dictated by Syeda Wren, Nurse Practitioner as directed. Dr. Sagrario MD I have performed a history and physical examination and medical decision making of this patient, discussed the same with the dictator, and agree with the dictators assessment and plan as written, documented as a scribe. Based on total visit time, I have performed more than 50% of this visit. Objective - Vital Signs Vital signs: Vital Signs Temp 98.1 F 08/02/23 19:58 Pulse 62 08/02/23 21:59 Resp 16 08/02/23 19:58 BP 139/71 08/02/23 19:58 Pulse Ox 92 L 08/02/23 19:58 FiO2 Intake & Output 08/02/23 08/02/23 08/03/23 06:59 18:59 06:59 Intake Total 1280 Balance 1280 Intake: Intake, IV Titration 80 Amount Sodium Chloride 0.9% 1, 80 000 ml @ 10 mls/hr IV . Q24H [facility] Rx#:[id number] Oral 1200 Other: # Voids 3 3 3 - Labs CBC & Chem 7: 08/01/23 04:51 08/01/23 04:51 Labs: Abnormal Lab Results - Last 24 Hours (Table) 08/02/23 08/02/23 08/02/23 Range/Units 06:43 12:09 16:56 POC Glucose (mg/dL) 339 H 342 H 392 H (70-110) mg/dL 08/02/23 Range/Units 20:32 POC Glucose (mg/dL) 339 H (70-110) mg/dL Microbiology - Last 24 Hours (Table) 07/31/23 10:30 Blood Culture - Preliminary Blood 07/31/23 10:15 Blood Culture - Preliminary Blood Assessment and Plan Time with Patient: Less than 30
[2023-08-03] MEDS: LORazepam 1 MG TAB PO PRN ×3 (02:11→13:34)
[2023-08-03 05:59] LABS: Glucose,Whole Blood 387 mg/dL (70-110)
[2023-08-03] MEDS: INSULIN ASPART (NovoLOG) 100 UNIT/ML VIAL SQ SCH ×2 (06:11→12:30)
[2023-08-03] MEDS ORDERED: INSULIN DETEMIR (LEVEMIR) 100 UNIT/ML SYR SQ SCH (08:30)
[2023-08-03] MEDS: BUPRENORPHINE-NALOX 8-2 MG TAB 1 EACH TAB.SUBL SL SCH (08:44)
[2023-08-03] MEDS: TAMSULOSIN 0.4 MG CAP.ER.24H PO SCH (08:44)
[2023-08-03] MEDS: busPIRone HCl 10 MG TAB PO SCH (08:45)
[2023-08-03] MEDS: PANTOPRAZOLE 40 MG TABLET PO SCH (08:45)
[2023-08-03] MEDS: QUEtiapine 100 MG TAB PO SCH (08:46)
[2023-08-03] MEDS: IPRATROPIUM-ALBUTEROL 3 ML NEB INHALATION SCH ×4 (08:48→12:05)
[2023-08-03] MEDS: BUDESONIDE 1 MG/2 ML NEBU INHALATION SCH (08:48)
[2023-08-03] MEDS: FORMOTEROL FUMARATE 20 MCG/2 ML NEBU INHALATION SCH (08:49)
[2023-08-03] MEDS ORDERED: predniSONE 20 MG TAB PO SCH (09:00)
[2023-08-03] MEDS ORDERED: LORazepam 2 MG/ML INJ IV STA (09:43)
[2023-08-03] MEDS: HEPARIN SODIUM,PORCINE 5,000 UNIT/ML 1 ML VIAL SQ SCH (09:58)
[2023-08-03] MEDS: NICOTINE 21MG/24HR PATCH TRANSDERM SCH (10:06)
[2023-08-03 11:46] LABS: Glucose,Whole Blood 383 mg/dL (70-110)
--- NOTE | 2023-08-03 14:14 | P.PN ---
Subjective Progress Note Date: 08/03/23 This is a 53-year-old male patient with a known history of chronic and ongoing tobacco dependence, chronic obstructive pulmonary disease, lumbar disc disease, CVA following a methamphetamine overdose. He lives in [facility] but was at [facility] for drug use. He was sent here today for increasing shortness of breath, cough and congestion for the past 5-6 days. His chest x-ray does show bilateral infiltrates. Viral screen was negative. He is seen today in consultation in the emergency department. He is awake and alert in no acute distress. He is maintaining O2 saturation in low 90s on room air. White count 7.4. Hemoglobin 15.0. Sodium 139. Potassium 4.7. Bicarb 25. BUN 20. Creatinine 0.68. Glucose 106. He's been initiated on DuoNeb inhalations, Pulmicort and Perforomist inhalations, IV Solu-Medrol. Antibiotics in the form of ceftriaxone and azithromycin. NicoDerm patch in place. Normal saline at 100 ML's per hour. The patient is seen today 08/01/2023 in follow-up on the regular medical floor. He is currently sitting up in a chair at the bedside. Awake and alert in no acute distress. Feeling a bit better today compared to yesterday. Still d yspneic with conversation. Dyspneic with minimal exertion. White count 10.9. Hemoglobin 12.2. Platelets 239. Sodium 138. Potassium 4.1. Bicarb 22. BUN 19. Creatinine 0.9. Glucose 212. AST 14. ALT 13. He is continued on DuoNeb inhalations, Pulmicort and Perforomist inhalations, Solu-Medrol. Antibiotics in the form of ceftriaxone and azithromycin. NicoDerm patch in place. Continued o n Suboxone. Remains on the CIWA protocol. Follow-up chest x-ray continues to show bilateral multifocal airspace opacities. Legionella antigen pending. Pro- calcitonin pending. The patient is seen today 08/02/2023 in follow-up on the regular medical floor. He is awake and alert in no acute distress. Up in a chair. Maintaining good O2 saturations in the 90s on room air. Continued on ceftriaxone and azithromycin. Legionella screen negative. Blood sugar 342. C-reactive protein less than 0 .30. ProBNP 869. Pro-calcitonin 0.02. Blood culture revealed no growth. If he is continued on DuoNeb inhalations, Pulmicort and Perforomist inhalations, Solu-Medrol. REM for DVT prophylaxis. NicoDerm patch in place. The patient is seen today 08/03/2023 in follow-up on the regular medical floor. He remains awake and alert in no acute distress. He's been up ambulating in the hallways. He is maintaining good O2 saturations in the 90s on room air. Blood cultures revealed no growth. Glucose 383. He remains on DuoNeb inhalations, Pulmicort and Perforomist inhalations, Solu-Medrol. Heparin for DVT prophylaxis. NicoDerm patch in place. Objective - Vital Signs Vital signs: Vital Signs Temp 98.2 F 08/03/23 08:06 Pulse 80 08/03/23 12:13 Resp 18 08/03/23 09:05 BP 126/68 08/03/23 08:06 Pulse Ox 93 L 08/03/23 08:49 FiO2 Intake & Output 08/02/23 08/03/23 08/03/23 18:59 06:59 18:59 Intake Total 1280 Balance 1280 Intake: Intake, IV Titration 80 Amount Sodium Chloride 0.9% 1, 80 000 ml @ 10 mls/hr IV . Q24H [facility] Rx#:[id number] Oral 1200 Other: # Voids 3 3 - Exam GENERAL EXAM: Alert, 53-year-old male, on room air, ambulating in the hallway, comfortable in no apparent distress. HEAD: Normocephalic. EYES: Normal reaction of pupils, equal size. NOSE: Clear with pink turbinates. THROAT: Edentulous. No erythema or exudates. NECK: No masses, no JVD. CHEST: No chest wall deformity. LUNGS: Equal air entry with bilateral scattered coarse rhonchi, wheeze, diminished. CVS: S1 and S2 normal with no audible murmur, regular rhythm. ABDOMEN: No hepatosplenomegaly, normal bowel sounds, no guarding or rigidity. SPINE: No scoliosis or deformity SKIN: No rashes CENTRAL NERVOUS SYSTEM: No focal deficits, tone is normal in all 4 extremities. EXTREMITIES: There is no peripheral edema. No clubbing, no cyanosis. Peripheral pulses are intact. - Labs CBC & Chem 7: 08/01/23 04:51 08/01/23 04:51 Labs: Abnormal Lab Results - Last 24 Hours (Table) 08/02/23 08/02/23 08/03/23 Range/Units 16:56 20:32 05:58 POC Glucose (mg/dL) 392 H 339 H 387 H (70-110) mg/dL 08/03/23 Range/Units 11:44 POC Glucose (mg/dL) 383 H (70-110) mg/dL Microbiology - Last 24 Hours (Table) 07/31/23 10:30 Blood Culture - Preliminary Blood 07/31/23 10:15 Blood Culture - Preliminary Blood Assessment and Plan Assessment: Acute hypoxemic respiratory failure secondary to an acute exacerbation of chronic obstructive pulmonary disease, complicated by suspected bilateral pneumonia, community-acquired a pro-calcitonin 0.02 antibiotics discontinued. Legionella screen negative. Methamphetamine abuse and currently residing in [facility] History of CVA secondary to methamphetamine use History of lumbar disc disease Chronic and ongoing tobacco dependence Plan: The patient was seen and evaluated Labs and medications reviewed Continue bronchodilators Transitioned to prednisone taper NicoDerm patch in place Plan is to return to [facility] post discharge I have personally seen and examined the patient, performed the documentation and the assessment and plan as written. Number of minutes spent on the visit: 10.
[2023-08-03 15:21] VITALS: BP 111/64; PULSE 91; RESP 17; TEMP 97.8
--- NOTE | 2023-08-03 15:59 | P.PN ---
Subjective Progress Note Date: 08/02/23 Principal diagnosis: Reason for follow-up is multifocal pneumonia Patient is a 53-year-old male with a past medical history negative for COPD current smoker presented to hospital with increasing shortness of breath and cough patient did have multifocal pneumonia on the chest x-ray and tested negative for covid 19 On today's evaluation that is 08/02/2023, the patient remains to be febrile, the patient is breathing comfortably on room air however complaining of shortness of breath on exertion he also have a cough moderate intensity occasional sputum no nausea no vomiting no abdominal pain or diarrhea. Patient did have a white count of 10.93, creatinine 0.9 as of 07/24/2023, patient did have a pro calcitonin was 0.02 and the CRP is less than 0.30 Objective - Vital Signs Vital signs: Vital Signs Temp 98.1 F 08/02/23 08:04 Pulse 78 08/02/23 09:20 Resp 18 08/02/23 08:04 BP 157/84 08/02/23 08:04 Pulse Ox 93 L 08/02/23 08:04 FiO2 Intake & Output 08/01/23 08/02/23 08/02/23 18:59 06:59 18:59 Other: # Voids 1 3 3 - Exam GENERAL DESCRIPTION: Middle-age male up in the chair in no distress RESPIRATORY SYSTEM: Unlabored breathing , coarse breath sounds bilaterally HEART: S1 S2 regular rate and rhythm , ABDOMEN: Soft , no tenderness EXTREMITIES: No edema feet - Labs CBC & Chem 7: 08/01/23 04:51 08/01/23 04:51 Labs: Abnormal Lab Results - Last 24 Hours (Table) 08/02/23 08/02/23 Range/Units 06:43 12:09 POC Glucose (mg/dL) 339 H 342 H (70-110) mg/dL Microbiology - Last 24 Hours (Table) 07/31/23 10:30 Blood Culture - Preliminary Blood 07/31/23 10:15 Blood Culture - Preliminary Blood Assessment and Plan (1) Multifocal pneumonia Status: Acute Code(s): J18.9 - PNEUMONIA, UNSPECIFIED ORGANISM SNOMED Code(s): 523487534 Plan: 1patient was in the hospital with increasing shortness of breath cough likely representing COPD exacerbation with evidence of multifocal pneumonia on the chest x-ray patient did have a negative COVID test. 2 sputum for Gram stain and culture has not been collected, urine for Legionella antigen is negative 3 Patient is clinically behaving more of a COPD exacerbation with tracheal bronchitis not pneumonia with a normal Percocet and antibodies can be safely discontinued Dictation was produced using [employer] software. please excuse any grammatical, word or spelling errors. Time with Patient: Less than 30
--- NOTE | 2023-08-03 16:00 | P.PN ---
Subjective Progress Note Date: 08/03/23 Principal diagnosis: Reason for follow-up is multifocal pneumonia Patient is a 53-year-old male with a past medical history negative for COPD current smoker presented to hospital with increasing shortness of breath and cough patient did have multifocal pneumonia on the chest x-ray and tested negative for covid 19 On today's evaluation that is 08/03/2023, the patient denies any fever or any chills, the patient is breathing comfortably on room air and denies any shor tness of breath, the patient denies any chest pain Cough has decreased in intensity not bringing up any sputum, patient denies nausea/vomiting /diarrhea and no abdominal pain Patient did have a white count of 10.93, creatinine 0.9 as of 07/24/2023, patient did have a pro calcitonin was 0.02 and the CRP is less than 0.30 Objective - Vital Signs Vital signs: Vital Signs Temp 98.2 F 08/03/23 08:06 Pulse 80 08/03/23 12:13 Resp 18 08/03/23 09:05 BP 126/68 08/03/23 08:06 Pulse Ox 93 L 08/03/23 08:49 FiO2 Intake & Output 08/02/23 08/03/23 08/03/23 18:59 06:59 18:59 Intake Total 1280 Balance 1280 Intake: Intake, IV Titration 80 Amount Sodium Chloride 0.9% 1, 80 000 ml @ 10 mls/hr IV . Q24H [facility] Rx#:[id number] Oral 1200 Other: # Voids 3 3 - Exam GENERAL DESCRIPTION: Middle-age male up in the chair in no distress RESPIRATORY SYSTEM: Unlabored breathing , coarse breath sounds bilaterally HEART: S1 S2 regular rate and rhythm , ABDOMEN: Soft , no tenderness EXTREMITIES: No edema feet - Labs CBC & Chem 7: 08/01/23 04:51 08/01/23 04:51 Labs: Abnormal Lab Results - Last 24 Hours (Table) 08/02/23 08/02/23 08/03/23 Range/Units 16:56 20:32 05:58 POC Glucose (mg/dL) 392 H 339 H 387 H (70-110) mg/dL 08/03/23 Range/Units 11:44 POC Glucose (mg/dL) 383 H (70-110) mg/dL Microbiology - Last 24 Hours (Table) 07/31/23 10:30 Blood Culture - Preliminary Blood 07/31/23 10:15 Blood Culture - Preliminary Blood Assessment and Plan (1) Multifocal pneumonia Status: Acute Code(s): J18.9 - PNEUMONIA, UNSPECIFIED ORGANISM SNOMED Code(s): 067001531 Plan: 1patient was in the hospital with increasing shortness of breath cough likely representing COPD exacerbation with evidence of multifocal pneumonia on the chest x-ray patient did have a negative COVID test. 2 sputum for Gram stain and culture has not been collected, urine for Legionella antigen is negative 3 Patient seemed to showing clinical improvement with steroids and bronchodilator which will be continued no need for any antibiotics on discharge Dictation was produced using [employer] dictation software. please excuse any grammatical, word or spelling errors. Time with Patient: Less than 30
--- NOTE | 2023-08-05 10:10 | P.DS ---
Providers Date of admission: 07/31/23 09:42 Attending physician: Kira Cross Consults: 07/31/23 09:42 Consult Physician Routine Consulting Provider: Robin Shaw Consult Reason/Comments: COPD, multifocal pneumonia Do you want consulting provider notified?: Yes 07/31/23 13:29 Consult Physician Routine Consulting Provider: Walter Pickard Consult Reason/Comments: Multifocal pneumonia Do you want consulting provider notified?: Yes Primary care physician: Stated None Hospital Course: Final Diagnosis Bilateral pneumonia, community acquired present on admission likely viral in nature with normal procalcitonin level. Completed course of antibiotics. Acute COPD exacerbation Steroid induced hyperglycemia Tobacco addiction History of Methamphetamine abuse on suboxone patient is from [place] History stroke in the past and meth overdose GI prophylaxis DVT prophylaxis Full Code Discharge Disposition Patient is stable for discharge to return to [place]. He will continue oral steroid taper and has completed course of oral antibiotics. Establish care with a PCP on discharge and has been referred to pulmonary services. Hospital Course This is a 53-year-old gentleman with past medical history significant for COPD, and tobacco addiction who presented to the ER because of worsening shortness of breath and productive cough for 1 week. Patient was sent in from [place] where He was being treated for methamphetamine abuse. Patient stated that shortness of breath on exertion. Patient was also coughing up white phlegm. Denied any fever or chills. There was no complain of orthopnea or PND. No complaint of chest pain. Denies any nausea, vomiting abdominal pain. Patient was complaining of lethargy and weakness. Because of the symptoms, patient came to the ER. Initial lab work done in the ER showed WBC 7.4, hemoglobin 15, platelet count 254, sodium 139 potassium 4.7, BUN 20, creatinine 0.68, glucose 106. Viral panel negative for Influenza, RSV and Covid. Chest x-ray done in the ER showed multifocal airspace opacities. Patient started on IV antibiotics and admitted to medicine service with pulmonary consultation. Had negative procalcitonin x 2. Blood culture negative. He improved with inhaled steroids and bronchodilators and systemic steroids and will continue oral taper on discharge. He has been up ambulating in the hallway and weaned off oxygen therapy. He was also evaluated by ID. Counseled on smoking cessation. He currently has no chest pain no shortness of breath which has resolved. He has been up ambulating in the hallway. Cleared by all consultations for return to [place]. Please see medication reconciliation for a list of current medications. Thank you for allowing us to participate in the care of this patient. The impression and plan of care has been dictated by Syeda Wren, Nurse Practitioner as directed. Dr. Sagrario MD I have performed a history and physical examination and medical decision making of this patient, discussed the same with the dictator, and agree with the dictators assessment and plan as written, documented as a scribe. Based on total visit time, I have performed more than 50% of this visit. Patient Condition at Discharge: Fair Plan - Discharge Summary Discharge Rx Participant: No New Discharge Prescriptions: New predniSONE 0 mg PO DIRECTED 12 Days #34 tab Pantoprazole [Protonix] 40 mg PO AC-BRKFST #30 tab Nicotine 21Mg/24Hr Patch [Habitrol] 1 patch TRANSDERM DAILY patch chlordiazePOXIDE HCl [Librium] 20 mg PO DIRECTED #6 cap Budesonide/Formoterol Fumarate [Symbicort 80-4.5 Mcg Inhaler] 1 puff INHALATION BID #10.2 gm Albuterol Inhaler [Ventolin Hfa Inhaler] 1 puff INHALATION QID PRN #8 gm PRN Reason: Shortness Of Breath Or Wheezing Continue Buprenorphine-Nalox 8-2 mg Tab [Suboxone 8-2 mg Tab] 1 tab SUBLINGUAL BID Acetaminophen Tab [Tylenol] 650 mg PO Q4H PRN PRN Reason: Pain Or Fever > 100.5 Calcium/Mag/Zinc/D3 1 tab PO TID PRN PRN Reason: CRAMPS busPIRone HCl [Buspar] 10 mg PO TID Tamsulosin HCl [Flomax] 0.4 mg PO DAILY QUEtiapine FUMARATE [SEROquel] 200 mg PO HS traZODone HCL 100 mg PO HS ondansetron HCL [Zofran] 8 mg PO Q6H PRN PRN Reason: Nausea Thiamine [Vitamin B-1] 100 mg PO DAILY Mylanta 30 ml PO Q4H PRN PRN Reason: Gi Upset Multivitamins, Thera [Multivitamin (formulary)] 1 tab PO DAILY Loperamide HCl [Imodium A-D] 4 mg PO QID PRN MDD 8 TABLETS PRN Reason: Loose Stool guaiFENesin [guaiFENesin Oral Solution] 200 mg PO Q4H PRN PRN Reason: COUGH/CONGESTION QUEtiapine [SEROquel] 100 mg PO DAILY Atorvastatin [Lipitor] 40 mg PO HS Discontinued Albuterol Nebulized [Ventolin Nebulized] 2.5 mg INHALATION RT-Q4H PRN PRN Reason: Shortness Of Breath Chlorpheniramine Maleate [Chlor-Trimeton] 4 mg PO Q4H PRN PRN Reason: Allergy Symptoms Azithromycin [Zithromax Z Pack] See Taper PO DIRECTED Discharge Medication List Acetaminophen Tab [Tylenol] 650 mg PO Q4H PRN 07/31/23 [History] Atorvastatin [Lipitor] 40 mg PO HS 07/31/23 [History] Buprenorphine-Nalox 8-2 mg Tab [Suboxone 8-2 mg Tab] 1 tab SUBLINGUAL BID 07/31/23 [History] Calcium/Mag/Zinc/D3 1 tab PO TID PRN 07/31/23 [History] Loperamide HCl [Imodium A-D] 4 mg PO QID PRN MDD 8 TABLETS 07/31/23 [History] Multivitamins, Thera [Multivitamin (formulary)] 1 tab PO DAILY 07/31/23 [Histor y] Mylanta 30 ml PO Q4H PRN 07/31/23 [History] QUEtiapine FUMARATE [SEROquel] 200 mg PO HS 07/31/23 [History] QUEtiapine [SEROquel] 100 mg PO DAILY 07/31/23 [History] Tamsulosin HCl [Flomax] 0.4 mg PO DAILY 07/31/23 [History] Thiamine [Vitamin B-1] 100 mg PO DAILY 07/31/23 [History] busPIRone HCl [Buspar] 10 mg PO TID 07/31/23 [History] guaiFENesin [guaiFENesin Oral Solution] 200 mg PO Q4H PRN 07/31/23 [History] ondansetron HCL [Zofran] 8 mg PO Q6H PRN 07/31/23 [History] traZODone HCL 100 mg PO HS 07/31/23 [History] Albuterol Inhaler [Ventolin Hfa Inhaler] 1 puff INHALATION QID PRN #8 gm [Rx] Budesonide/Formoterol Fumarate [Symbicort 80-4.5 Mcg Inhaler] 1 puff INHALATION BID #10.2 gm 08/03/23 [Rx] Nicotine 21Mg/24Hr Patch [Habitrol] 1 patch TRANSDERM DAILY patch 08/03/23 [Rx] Pantoprazole [Protonix] 40 mg PO AC-BRKFST #30 tab 08/03/23 [Rx] chlordiazePOXIDE HCl [Librium] 20 mg PO DIRECTED #6 cap 08/03/23 [Rx] predniSONE 0 mg PO DIRECTED 12 Days #34 tab 08/03/23 [Rx] Follow up Appointment(s)/Referral(s): Robin Shaw DO [Doctor of Osteopathic Medicine] - 1 Week None,Stated [Primary Care Provider] - 1-2 days Patient Instructions/Handouts: COPD (Chronic Obstructive Pulmonary Disease) (DC) Activity/Diet/Wound Care/Special Instructions: [place] will transport on d/c #[phone] Discharge Disposition: HOME SELF-CARE
== END 2023-08-03 15:28 | disposition home or self-care (01) | DRG 193 ==
LOC: EC 07:00 → 4SSUR 09:42
PROVIDERS: ADMIT Hospitalist; ATTEND Hospitalist
DX: J12.89 Other viral pneumonia (principal); J96.01 Acute respiratory failure with hypoxia; J44.1 Chronic obstructive pulmonary disease with (acute) exacerbation; J44.0 Chronic obstructive pulmonary disease with (acute) lower respiratory infection; Z59.00 Homelessness unspecified; F17.210 Nicotine dependence, cigarettes, uncomplicated; F41.9 Anxiety disorder, unspecified; G89.29 Other chronic pain; F15.10 Other stimulant abuse, uncomplicated; T43.65 Poisoning by, adverse effect of and underdosing of methamphetamines; T38.0X5A Adverse effect of glucocorticoids and synthetic analogues, initial encounter; R73.9 Hyperglycemia, unspecified; Z79.51 Long term (current) use of inhaled steroids; Z79.899 Other long term (current) drug therapy; Z86.73 Personal history of transient ischemic attack (TIA), and cerebral infarction without residual deficits; Z11.52 Encounter for screening for COVID-19; Z79.52 Long term (current) use of systemic steroids; M51.36 Other intervertebral disc degeneration, lumbar region
CPT/HCPCS: 36415; 71046; 80053; 83036; 83605; 83735; 83880; 84145; 85025; 85610; 85730; 86140; 87040; 87449; 87636; 93005; 94640; 94760; 96361; 96365; 96366; 96368; 96375; 99285